=== PATIENT | female | born 1945 | race Caucasian/White ===

== ENCOUNTER 2021-06-14 13:54 | Emergency (ER) | payer OTHER ==
[~2021-06-14] VITALS: Ht 165.1 cm; Wt 81.7 kg
[~2021-06-14 13:54] MED LIST: ACET325 PO; ATOR40TA PO; Amphetamine Sal30 MG PO; CELE200 PO; CELECOXIB200 MG PO; DOCU100 PO; DULCOLAX400 MG/5 M PO; ESCI20; FURO20 PO; IMIP25 PO; IMITREX; IMITREX50 M1 PO; METPRE4DP PO; MULTI-VITAMIN1 EAC2 PO; Norco 5-325 Ta1 EACH PO; OMEP20ER PO; OXYC10ER PO; PARO10 PO; PROGESTERONE; Percocet 5-3251 EACH PO; RALO60; ROSU10TA; SENN187 PO; SIMV40 PO; TESTOSTERONE; TIZANIDINE HCL4 MG PO; TRAZ100; TRAZ100 PO; VENL75ER PO; Valium5 MG PO; Verapamil ER300 MG PO; WARF7.5 PO; [UNRECOGNIZED DRUG - CODE]; [UNRECOGNIZED DRUG - OTHER]; [UNRECOGNIZED DRUG - OTHER]; [UNRECOGNIZED DRUG - OTHER] PO
[2021-06-14 14:57] LABS: BASOPHILS ABSOLUTE AUTO 0.06 K/mm3 (0.00-0.23); BASOPHILS PERCENT AUTO 1 % (0-2); EOSINOPHILS ABSOLUTE AUTO 0.21 K/mm3 (0.00-0.68); EOSINOPHILS PERCENT AUTO 3 % (0-6); Hematocrit 43.6 % (33.0-51.0); Hemoglobin 14.3 g/dL (11.5-16.0); IMMATURE GRAN ABSOLUTE AUTO 0.02 K/mm3 (0.00-0.10); IMMATURE GRAN PERCENT AUTO 0 % (0-1); LYMPHOCYTES ABSOLUTE AUTO 2.13 K/mm3 (0.84-5.20); LYMPHOCYTES PERCENT AUTO 27 % (21-46); MONOCYTES ABSOLUTE AUTO 0.74 K/mm3 (0.16-1.47); MONOCYTES PERCENT AUTO 9 % (4-13); Mean Corpuscular HGB 30.5 pg (26.0-34.0); Mean Corpuscular HGB Conc 32.8 g/dL (31.5-36.5); Mean Corpuscular Volume 93 fL (80-100); Mean Platelet Volume 10.7 fL (9.1-12.4); NEUTROPHILS ABSOLUTE AUTO 4.89 K/mm3 (1.96-9.15); NEUTROPHILS PERCENT AUTO 61 % (41-73); Platelet Count 104 K/mm3 (150-400); RDW Coefficient Variation 13.7 % (11.7-14.2); Red Blood Cell Count 4.69 M/mm3 (3.80-5.20); White Blood Cell Count 8.05 K/mm3 (4.00-11.30)
[2021-06-14 15:16] LABS: Albumin, Blood 3.5 g/dL (3.4-5.0); Bilirubin, Total 0.5 mg/dL (0.1-1.0); Bun/Creatinine Ratio 17.8 (12.0-20.0); Creatinine, Blood 1.01 mg/dL (0.40-1.00); Globulin, Blood 3.6 g/dL (2.2-4.0); Magnesium, Blood 2.2 mg/dL (1.6-2.4); Potassium, Blood 3.8 mmol/L (3.5-5.5); Total Protein, Blood 7.1 g/dL (6.4-8.2)
[2021-06-14 15:47] LABS: Source, Urine Clean Catch
[2021-06-14 15:49] LABS: Bilirubin, Urine Neg (Neg); Blood, Urine Neg (Neg); Glucose Qualitative, Urine Neg (Neg); Ketones, Urine 1+ (Neg); Leukocyte Esterase, Urine Neg (Neg); Nitrite, Urine Neg (Neg); Protein, Urine 1+ (Neg); Urobilinogen, Urine NORM (Normal)
[2021-06-14 16:03] LABS: Appearance, Urine Clear (Clear); Color, Urine Pale Yellow (P-Yellow)
[2021-06-14 18:40] LABS: Influenza A, PCR NEGATIVE (NEGATIVE); Influenza B, PCR NEGATIVE (NEGATIVE); Resp Syncytial Virus, PCR NEGATIVE (NEGATIVE); SARS-Cov-2 (COVID-19) PCR, MMC NEGATIVE (NEGATIVE)
== END 2021-06-14 19:45 | disposition home or self-care (01) ==
LOC: ER 13:54
PROVIDERS: Physician Assistant
DX: R53.1 Weakness (principal); R68.89 Other general symptoms and signs; Z88.8 Allergy status to other drugs, medicaments and biological substances; Z79.899 Other long term (current) drug therapy; Z79.01 Long term (current) use of anticoagulants; Z86.711 Personal history of pulmonary embolism
CPT/HCPCS: 0241U; 36415; 80053; 83735; 83880; 84484; 85025; 93005; 93010; 99285-25

== ENCOUNTER 2021-07-03 09:35 | Day surgery (SDC) | payer OTHER ==
[~2021-07-03] VITALS: Ht 165.1 cm; Wt 82.0 kg
[2021-07-03] MEDS ORDERED: GLUCHON PO (10:09)
--- NOTE | 2021-07-03 14:30 | NUR ---
PT RESTING IN BED. SO AT BEDSIDE.
--- NOTE | 2021-07-03 16:19 | NUR ---
DR RICH IN AND TALKED WITH PT AND . PT DRESSED WITH ASSIST. TR BAND REMOVED AND CLOTH DOT PLACED AT R RADIAL SITE. PRESSURE DRESSING APPLIED TO SIGHT BRUISING NOTED AND DR AWARE. SALINE LOCK REMOVED WITH CATHETER INTACT. R ARM PLACED IN SLING. PT AWARE TO TAKE PRESSURE DRESSING OFF TONIGHT. DISCHARGE INSTRUCTIONS REVIEWED WITH PT, VERBALIZES UNDERSTANDING OF INSTRUCTIONS. ALSO VERBALIZES UNDERSTANDING OF INSTRUCTIONS. PT TO PRIVATE VEHICLE PER W/C WITH ONE STAFF.
== END 2021-07-03 22:50 | disposition home or self-care (01) ==
LOC: MHTC 09:35
DX: I05.0 Rheumatic mitral stenosis (principal); I07.1 Rheumatic tricuspid insufficiency; I27.20 Pulmonary hypertension, unspecified; E78.5 Hyperlipidemia, unspecified; I10 Essential (primary) hypertension; R06.00 Dyspnea, unspecified; R53.83 Other fatigue; Z88.8 Allergy status to other drugs, medicaments and biological substances
CPT/HCPCS: 76937; 93460; 99152; 99153; C1769; C1887; C1894; J1644; J2250; J3010; J7030; J7040; J7050; Q9967

== ENCOUNTER 2022-06-30 17:58 | Inpatient (IN) | payer OTHER ==
[~2022-06-30] VITALS: Ht 165.1 cm; Wt 85.0 kg
[~2022-06-30 17:58] MED LIST changes: -AMIODARONE; +CALAN SR240 M1 PO; -CENTRUM SILVER1 EAC2 PO; -NEBI5 PO; -Verapamil ER300 MG PO; -WARF5 PO; -ZOCOR20 MG
[2022-06-30] MEDS ORDERED: AMIODARONE (18:42)
[2022-06-30] MEDS ORDERED: ZOCOR20 MG (18:43)
[2022-06-30 21:11] LABS: International Normalized Ratio 1.86; Prothrombin Time Results 18.9 Sec (9.7-11.5)
[2022-06-30 21:33] LABS: Anti-Xa UFH, PHA Monitoring <0.10 IU/mL
[2022-06-30 22:20] VITALS: BP 144/75
--- NOTE | 2022-06-30 23:00 | NUR ---
ARRIVAL TO [facility] PT ARRIVED TO [facility] AT APPROXIMATELY 2210. PT TRANSFERED FROM ER [facility] TO HOSPITAL BED WITH SBA. PT A&Ox4, COMMUNICATES NEEDS APPROPRIATELY. ORIENTED PT CALL LIGHT/UNIT. SpO2> 92% RA, DENIES SOB. BP STABLE, SINUS 60's, DENIES CP/PRESSURE. PT REPORTS RIGHT NECK/SHOULDER PAIN, ICE PACK PROVIDED AND MEDICATED PER EMAR. HEPARIN gtt STARTED @ 12units/hr PER PHARMACY. BED IN LOWEST POSITION, CALL LIGHT IN REACH.
[2022-07-01] VITALS (14 sets, daily range): BP systolic 116–158; BP diastolic 55–104
[2022-07-01 05:29] LABS: BASOPHILS ABSOLUTE AUTO 0.08 K/mm3 (0.00-0.23); BASOPHILS PERCENT AUTO 1 % (0-2); EOSINOPHILS ABSOLUTE AUTO 0.39 K/mm3 (0.00-0.68); EOSINOPHILS PERCENT AUTO 5 % (0-6); Hematocrit 39.2 % (33.0-51.0); Hemoglobin 12.6 g/dL (11.5-16.0); IMMATURE GRAN ABSOLUTE AUTO 0.01 K/mm3 (0.00-0.10); IMMATURE GRAN PERCENT AUTO 0 % (0-1); LYMPHOCYTES ABSOLUTE AUTO 2.54 K/mm3 (0.84-5.20); LYMPHOCYTES PERCENT AUTO 34 % (21-46); MONOCYTES ABSOLUTE AUTO 0.76 K/mm3 (0.16-1.47); MONOCYTES PERCENT AUTO 10 % (4-13); Mean Corpuscular HGB 29.2 pg (26.0-34.0); Mean Corpuscular HGB Conc 32.1 g/dL (31.5-36.5); Mean Corpuscular Volume 91 fL (80-100); Mean Platelet Volume 10.4 fL (9.1-12.4); NEUTROPHILS ABSOLUTE AUTO 3.81 K/mm3 (1.96-9.15); NEUTROPHILS PERCENT AUTO 50 % (41-73); Platelet Count 195 K/mm3 (150-400); RDW Coefficient Variation 14.3 % (11.7-14.2); RDW Standard Deviation 48.2 fL (35.1-46.3); Red Blood Cell Count 4.31 M/mm3 (3.80-5.20); White Blood Cell Count 7.59 K/mm3 (4.00-11.30)
[2022-07-01 06:02] LABS: Bun/Creatinine Ratio 34.6 (12.0-20.0); Calcium, Blood 8.1 mg/dL (8.5-10.1); Creatinine, Blood 0.93 mg/dL (0.40-1.00); Potassium, Blood 4.2 mmol/L (3.5-5.5)
--- NOTE | 2022-07-01 06:23 | NUR ---
SHIFT SUMMARY PT A&Ox4, CALLS AND COMMUNICATES NEEDS APPROPRIATELY. PT SBA TO BATHROOM, CONTINENT OF URINE, NO BM THIS SHIFT. SpO2> 92% RA, DENIES SOB. BP STABLE, SINUS 60's, DENIES CP/PRESSURE. PT REPORTS RIGHT NECK/SHOULDER PAIN, ICE PACK PROVIDED AND MEDICATED PER EMAR. HEPARIN gtt @ 12units/hr PER PHARMACY. PT NPO. NOTIFIED OF CRIICAL TROP, ATTEMPTED TO NOTIFY PHYSICIAN, WAITING FOR CALL BACK. NO CHANGE IN PT STATUS. NO OTHER EVENTS, WILL REPORT TO ONCOMING RN.
--- NOTE | 2022-07-01 09:15 | NUR ---
AM NOTE: PATIENT ALERT AND ORIENTED X4. 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 PATIENT STATES SHE IS ABLE TO SEE SHADOWS WITH RIGHT EYE. LEFT EYE WNL. WEARING GLASSES. NUMBNESS TO BILATERAL FEET AND LEFT THIGH. PATIENT STATES SHE OCCASIONALLY GETS [employer]ARP SHOOTING "ELECTRIC" PAIN IN LEFT THIGH. ON ROOM AIR SATING 100%. DENIES SOB. LUNGS SOUNDING CLEAR. NO COUGH NOTED. TELE SHOWING SR WITH HR 60'S. DENIES CHEST PAIN/PRESSURE/PALPITATIONS. BP STABLE. MINIMAL EDEMA NOTED TO BLE. HEPARIN DRIP INFUSING PER EMAR. 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 PATIENT STATES RECENTLY SHE FELT A TIGHTNESS IN HER LEFT CALF AT HOME AND PLACED HER MANUEL HOSE ON, WHICH GAVE HER RELIEF. DENIES TIGHTNESS AT THIS TIME. LEFT CALF SLIGHTLY LARGER THAN RIGHT, NO REDNESS OR IRRITATION NOTED. DENIES PAIN IN CALVES. ECHO COMPLETED THIS MORNING. NPO AT THIS TIME PENDING CARDIOLOGY CONSULT. TO BRING IN HOME MEDICATION LIST TO UPDATE MED REC. PATIENT STATES SHE WAS RECENTLY PLACED ON BP MEDICATION THAT WAS NOT MAKING HER FEEL GOOD AND SHE WAS WORKING WITH HR DOCTORS TO CUT IT BACK. DENIES ABDOMINAL PAIN/NAUSEA. VOIDING WNL. UP WITH SBA TO BATHROOM. SKIN OVERALL C/D/I. CALL LIGHT IN REACH. WILL CONTINUE TO MONITOR.
--- NOTE | 2022-07-01 10:13 | NUR ---
DR. DEJESUS BY, PLAN FOR ANGIOGRAM TODAY. PATIENT HAS REMAINED NPO. HEPARIN GTT, CONTINUES PER EMAR. CONSENT SIGNED AND IN CHART.
--- NOTE | 2022-07-01 10:15 | NUR ---
PATIENT TO HEART CENTER AT THIS TIME.
[2022-07-01] MEDS ORDERED: CENTRUM SILVER1 EAC2 PO (10:24)
[2022-07-01] MEDS ORDERED: WARF5 PO (10:30)
[2022-07-01] MEDS ORDERED: NEBI5 PO (10:31)
--- NOTE | 2022-07-01 12:02 | NUR ---
PATIENT BACK FROM [facility] AT 1130. RIGHT RADIAL SITE WNL. SOFT/NONTENDER. NO SIGNS OF BLEEDING. TR BAND AND ARM BOARD IN PLACE. RADIAL SITE PRECAUTIONS REVIEWED WITH PATIENT. HEPARIN GTT CONTINUES PER DR. DEJESUS. PHARMACY CALLED AND UPDATED ON HEPARIN. POST VITALS IN PROGRESS AND STABLE. RIGHT RADIAL PULSE STRONG AND PALPABLE. PLAN FOR POSSIBLE LEATHA IN AM, NPO AT MIDNIGHT. DR. SLOAN BY TO SEE PATIENT, PLAN FOR VENOUS DUPLEX AND CTA OF CHEST. ORDERS TO DC NS. THIS RN ALSO UPDATED ON MED REC BEING COMPLETE. LIST OF PATIENT MEDICATIONS COPIED AND IN CHART. EUGENE CALLED AND UPDATED POST ANGIO.
--- NOTE | 2022-07-01 12:11 | NUR ---
SPOKE WITH DR. COBURN, WILL CONTINUE NS AT 75 ML/HR. SEE EMAR.
--- NOTE | 2022-07-01 12:55 | NUR ---
VENOUS DUPLEX BEING COMPLETED AT THIS TIME.
--- NOTE | 2022-07-01 18:31 | NUR ---
SHIFT SUMMARY: NO ACUTE CHANGES. PATIENT NEURO UNCHANGED. NO TELE EVENTS, REMAINS SR WITH HR 60'S. ON ROOM AIR. VITAL SIGNS STABLE. HEPARIN GTT CONTINUES ANTI XA PENDING AT THIS TIME. NS PER EMAR. UP TO BATHROOM WITH SBA. EATING WNL. PLAN FOR NPO AT MIDNIGHT. RIGHT RADIAL SITE WITH SMALL HEMATOMA THAT IS SOFT. SEE HEART CENTER FLOW SHEET CHARTING FOR REMOVAL OF TR BAND. TR BAND OFF AT THIS TIME. TEGADERM COVERING SITE, ARM BOARD IN PLACE. PLAN FOR LEATHA IN AM. AT BEDSIDE AND UPDATED THROUGHOUT SHIFT. VENOUS DUPLEX AND CTA OF CHEST COMPLETED. DENIES PAIN. DENIES NEEDS AT THIS TIME.
[2022-07-02 03:02] VITALS: BP 137/85
[2022-07-02 04:15] LABS: BASOPHILS ABSOLUTE AUTO 0.08 K/mm3 (0.00-0.23); BASOPHILS PERCENT AUTO 1 % (0-2); EOSINOPHILS ABSOLUTE AUTO 0.43 K/mm3 (0.00-0.68); EOSINOPHILS PERCENT AUTO 6 % (0-6); Hematocrit 39.1 % (33.0-51.0); Hemoglobin 12.7 g/dL (11.5-16.0); IMMATURE GRAN ABSOLUTE AUTO 0.02 K/mm3 (0.00-0.10); IMMATURE GRAN PERCENT AUTO 0 % (0-1); LYMPHOCYTES ABSOLUTE AUTO 1.82 K/mm3 (0.84-5.20); LYMPHOCYTES PERCENT AUTO 24 % (21-46); MONOCYTES ABSOLUTE AUTO 0.68 K/mm3 (0.16-1.47); MONOCYTES PERCENT AUTO 9 % (4-13); Mean Corpuscular HGB 29.2 pg (26.0-34.0); Mean Corpuscular HGB Conc 32.5 g/dL (31.5-36.5); Mean Corpuscular Volume 90 fL (80-100); Mean Platelet Volume 10.5 fL (9.1-12.4); NEUTROPHILS ABSOLUTE AUTO 4.42 K/mm3 (1.96-9.15); NEUTROPHILS PERCENT AUTO 59 % (41-73); Platelet Count 199 K/mm3 (150-400); RDW Coefficient Variation 14.1 % (11.7-14.2); RDW Standard Deviation 46.7 fL (35.1-46.3); Red Blood Cell Count 4.35 M/mm3 (3.80-5.20); White Blood Cell Count 7.45 K/mm3 (4.00-11.30)
[2022-07-02 04:30] LABS: Bun/Creatinine Ratio 23.4 (12.0-20.0); Calcium, Blood 8.5 mg/dL (8.5-10.1); Creatinine, Blood 0.81 mg/dL (0.40-1.00); Potassium, Blood 4.2 mmol/L (3.5-5.5)
--- NOTE | 2022-07-02 05:01 | NUR ---
SHIFT SUMMARY PT A&Ox4, CALLS AND COMMUNICATES NEEDS APPROPRIATELY. PT AMBULATED TO BATHROOM FREQUENTLY WITH SBA. CONTINENT OF URINE, NO BM THIS SHIFT. SpO2> 92% RA, DENIES SOB. BP STABLE, SINUS 60's, DENIES CP/PRESSURE. HEPARIN gtt @ 12units/hr PER PHARMACY. PT NPO. PT DENIED PAIN THROUGHOUT SHIFT. NO OTHER EVENTS, WILL REPORT TO ONCOMING RN.
--- NOTE | 2022-07-02 05:11 | NUR ---
SHIFT SUMMARY PT A&Ox4, CALLS AND COMMUNICATES NEEDS APPROPRIATELY. PT AMBULATED TO BATHROOM FREQUENTLY WITH SBA. CONTINENT OF URINE, NO BM THIS SHIFT. SpO2> 92% RA, DENIES SOB. BP STABLE, SINUS 60's, DENIES CP/PRESSURE. R RADIAL ANGIO SITE C/D/I, SITE UNCHANED SINCE START OF SHIFT WITH SMALL HEMATOMA PRESENT. PT DENIES PAIN AT SITE, ARM BOARD IN PLACE. HEPARIN gtt @ 12units/hr PER PHARMACY. PT NPO. PT DENIED PAIN THROUGHOUT SHIFT. NO OTHER EVENTS, WILL REPORT TO ONCOMING RN.
[2022-07-02 12:32] LABS: International Normalized Ratio 1.54; Prothrombin Time Results 15.8 Sec (9.7-11.5)
--- NOTE | 2022-07-02 12:33 | NUR ---
SHIFT UPDATE: PATIENT IS ALERT AND ORIENTED,PLEASANT, COOPERATIVE WITH CARE. ABLE TO MAKE NEEDS KNOWN. RIGHT EYE INJURY WHEN YOUNG CHILD. BLINDNESS, CAN MAKE OUT SOME SHADOWS. DENIES CHEST PAIN PRESSURE DIZZINESS, LIGHT-HEADEDNESS, NO ORHTOSTATIC POSITION DIZZINESS. SLIGHTLY INCREASED BP 150'S SIMILAR TO YESTERDAY VITALS CARDIOLOGY SEEN PATIENT NO LEATHA, 6-8 WEEK FOLLOW UP FOR ECHO, INR TO BE 2.5-3.5. DR. REEVES ORDERED STAT INR, 10MG OF WARFARIN, PT IN AM, PHARM CONSULT, MED TELE STATUS. NO LUNG CONCERNS ON RA. DEEP BREATHING COUGH AND POSITION CHANGES EDUCATED PATIENT ALONG WITH MEDICATION ANTICOAGULATION CURRENT ILLNESS >30MINUTES FROM THIS RN. PATIENT HAS INFUSING FLUIDS AND INCREASED URINE OUTPUT, NO WORSENING TO EDEMA SEEN. WILL CONTINUE TO MONITOR. NO CONCERNS FROM THIS RN OR PATIENT AT THIS TIME WILL CONTINUE TO MONITOR UNTIL SHIFT CHANGE.
--- NOTE | 2022-07-02 17:20 | NUR ---
END OF SHIFT: PATIENT HAS NO CHANGES FROM SHIFT UPDATE. STILL DENIES CHEST PAIN, SLIGHT INCREASE TO BLOOD PRESSURE, 150'S SYS. TYPICAL FROM YESTERDAY BLOOD PRESSURES. NO CONCERNS FROM THIS RN. RM [id number] REPORT NOT GIVEN AT THIS TIME AWAITING ROOM TO BE CLEANED MT STATUS. WILL CONTINUE TO MONITOR UNTIL SHIFT CHANGE. HEPARIN GTT STILL INFUSING NO CHANGES.
[2022-07-02] MEDS ORDERED: NEURONTIN300 MG PO (20:00)
[2022-07-02 20:53] VITALS: BP 164/87
[2022-07-03 03:10] VITALS: BP 138/74
--- NOTE | 2022-07-03 05:27 | NUR ---
SHIFT SUMMARY 76 YR F TRANSFERED FROM PCU ON 07/02/22. FULL CODE. NO ACUTE CHANGES THIS SHIFT. HEPARIN IS STILL RUNNING WITH NO CHANGES IN RATE SO FAR THIS SHIFT. PT HAS HAD NO C/O PAIN OR DISCOMFORT. SHE IS ABLE TO AMBULATE TO THE BATHROOM INDEPENDANTLY, SHE JUST NEEDS THE IV PUMP UNPLUGGED FIRST. SHE CALLS APPROPRIATELY AND IS PLEASANT AND COOPERATIVE WITH CARE.
[2022-07-03 05:39] LABS: Anti-Xa UFH, PHA Monitoring 0.47 IU/mL; International Normalized Ratio 1.37; Prothrombin Time Results 14.1 Sec (9.7-11.5)
[2022-07-03 08:46] VITALS: BP 128/84
[2022-07-03 16:40] VITALS: BP 143/83
--- NOTE | 2022-07-03 18:15 | NUR ---
SHIFT SUMMARY NO ACUTE CHANGES THIS SHIFT. PATIENT EATING, DRINKING, & VOIDING W/O DIFFICULTY. AMBULATING WELL INDEPENDENLTY IN ROOM. DENIED CP/PRESSURE/SOB T/O SHIFT. HEPARIN DRIP RUNNING PER EMAR, NO CHANGES MADE THIS SHIFT. USES CALL LIGHT APPROPRIATELY, IN REACH. WILL REPORT TO ONCOMING RN AT 1900.
[2022-07-03 19:22] VITALS: BP 145/78
--- NOTE | 2022-07-04 03:24 | NUR ---
SHIFT SUMMARY 76 YR F ADMITTED ON 07/01/22 FOR [facility]STMI. FULL CODE. NO ACUTE CHANGES THIS SHIFT. PT IS A&0 x 4 AND INDEPENDANT IN THE ROOM. NO C/O PAIN OR DISCOMFORT THIS SHIFT. HEPARIN IS RUNNING @ 12 U/KG/HR. SAFETY MEASURES IN PLACE AND CALL LIGHT WITHIN REACH. WILL CONTINUE TO MONITOR.
[2022-07-04 04:19] VITALS: BP 145/89
[2022-07-04 05:21] LABS: BASOPHILS ABSOLUTE AUTO 0.09 K/mm3 (0.00-0.23); BASOPHILS PERCENT AUTO 1 % (0-2); EOSINOPHILS ABSOLUTE AUTO 0.47 K/mm3 (0.00-0.68); EOSINOPHILS PERCENT AUTO 7 % (0-6); Hematocrit 38.9 % (33.0-51.0); Hemoglobin 12.6 g/dL (11.5-16.0); IMMATURE GRAN ABSOLUTE AUTO 0.02 K/mm3 (0.00-0.10); IMMATURE GRAN PERCENT AUTO 0 % (0-1); LYMPHOCYTES ABSOLUTE AUTO 1.89 K/mm3 (0.84-5.20); LYMPHOCYTES PERCENT AUTO 27 % (21-46); MONOCYTES ABSOLUTE AUTO 0.76 K/mm3 (0.16-1.47); MONOCYTES PERCENT AUTO 11 % (4-13); Mean Corpuscular HGB 28.9 pg (26.0-34.0); Mean Corpuscular HGB Conc 32.4 g/dL (31.5-36.5); Mean Corpuscular Volume 89 fL (80-100); Mean Platelet Volume 9.8 fL (9.1-12.4); NEUTROPHILS ABSOLUTE AUTO 3.82 K/mm3 (1.96-9.15); NEUTROPHILS PERCENT AUTO 54 % (41-73); Platelet Count 206 K/mm3 (150-400); RDW Coefficient Variation 14.1 % (11.7-14.2); RDW Standard Deviation 45.3 fL (35.1-46.3); Red Blood Cell Count 4.36 M/mm3 (3.80-5.20); White Blood Cell Count 7.05 K/mm3 (4.00-11.30)
[2022-07-04 05:37] LABS: Anti-Xa UFH, PHA Monitoring 0.51 IU/mL; International Normalized Ratio 1.48; Prothrombin Time Results 15.2 Sec (9.7-11.5)
[2022-07-04 07:59] VITALS: BP 125/74
--- NOTE | 2022-07-04 15:24 | NUR ---
SHIFT SUMMARY: PATIENT A&OX4. CALM, PLEASANT AND COOPERATIVE c CARE. USES CALL LIGHT APPROPRIATELY AND ABLE TO MAKE NEEDS KNOWN. PATIENT DENIES CP/PRESSURE, N/V, SOB. ON TELE, SR HR 75 BPM c FIRST DEGREE HB, PER PRODUCTION MAINTENANCE TECHNICIAN MONICA JENSEN. NOTED BRUISING TO R WRIST, PER PATIENT FROM ANGIOGRAM DONE ON 07/01/22. PATIENT IS CONTINENT OF URINE AND STOOL. AMBULATES TO BATHROOM AND BACK IN BED INDEPENDENTLY T/O SHIFT. IV TO R AC SALINE LOCKED. IV TO R FOREARM INFUSING HEPARIN AT 16.8 MLS/HR. RECEIVED SCHEDULED MEDS PER EMAR. VITAL SIGNS REVIEWED. CALL LIGHT IN REACH.
[2022-07-04 17:50] VITALS: BP 135/92
[2022-07-04 19:28] VITALS: BP 133/83
[2022-07-05 02:38] VITALS: BP 115/69
--- NOTE | 2022-07-05 04:02 | NUR ---
SHIFTY SUMMARY PATIENT HAD NO ACUTE CHANGES. AXOX 4 AND SBA TO BR. DENIES CHEST PAIN, SOB, AND N/V. VSS/AFEBRILE. PIV REMAINS INTACT. TELE MONITOR NSR WITH FIRST DEGREE @ 72. HEPARIN INFUSING AT 16.8 mL/HR MANAGE BY PHARMACY. CALL LIGHT IN REACH. BED IN LOWEST POSITION. WILL CONTINUE TO MONITOR UNTIL DAY SHIFT NURSE ASSUMES CARE.
[2022-07-05 04:55] LABS: International Normalized Ratio 1.9; Prothrombin Time Results 19.2 Sec (9.7-11.5)
[2022-07-05 07:29] VITALS: BP 121/70
--- NOTE | 2022-07-05 16:25 | NUR ---
NO ACUTE CHANGES PT IS AOX4 AND COOPERATIVE OF CARE. PT IS INDEPENDENT IN ROOM AND CAN MAKE NEEDS KNOWN. CALL LIGHT WITHIN REACH WILL CONTINUE TO MONITOR.
[2022-07-05 19:28] VITALS: BP 135/75
--- NOTE | 2022-07-06 04:15 | NUR ---
SHIFT SUMMARY PATIENT HAD NO ACUTE CHANGES. AXOX 4 AND SBA TO BR. PIV REMAINS INTACT. HEPARIN INFUSING AT 16.8 mL/HR MANAGED BY PHARMACY. DENIES CHEST PAIN, SOB, AND N/V. TELE MONITOR NSR @ 73 WITH FIRST DEGREE. COOPERATIVE WITH CARE. CALL LIGHT IN REACH. BED IN LOWEST POSITION. WILL CONTINUE TO MONITOR UNTIL DAY SHIFT NURSE ASSUMES CARE.
[2022-07-06 04:37] LABS: Anti-Xa UFH, PHA Monitoring 0.56 IU/mL; International Normalized Ratio 2.48; Prothrombin Time Results 24.7 Sec (9.7-11.5)
[2022-07-06 05:05] VITALS: BP 137/80
[2022-07-06 07:52] VITALS: BP 127/68
[2022-07-06] MEDS ORDERED: ASPI81CH PO (08:58)
--- NOTE | 2022-07-06 09:03 | NUR ---
PT TO BE DISCHARGED WALKED WITH PT USING WALKER. PT REPORTS SLIGHT LIGHT HEADEDNESS BUT NO SOB.
--- NOTE | 2022-07-06 15:02 | NUR ---
LATE ENTRY-DISCHARGE PT DISCHARGED TO HOME. WALKED WITH PT USING WALKER TO ASSESS TOLORANCE. PT DENIED SOB. FELT A LITTLE LIGHT HEADED. ALERT AND ORIENTED X4.DISCUSSED DISCHARGE INSTRUCTIONS WITH PT. NO QUESTIONS AT THIS TIME.
== END 2022-07-06 11:20 | disposition home or self-care (01) | DRG 281 ==
LOC: ER 17:58 → PCU 17:59 → MEDS 07-02 18:54
PROVIDERS: Internal Medicine; Nurse Practitioner Acute Care; ADMIT Internal Medicine
PROC: 4A023N7 Measurement of Cardiac Sampling and Pressure, Left Heart, Percutaneous Approach (ICD-10-PCS; principal; 2022-07-01)
PROC: B2111ZZ Fluoroscopy of Multiple Coronary Arteries using Low Osmolar Contrast (ICD-10-PCS; 2022-07-01)
PROC: B24BZZ3 Ultrasonography of Heart with Aorta, Intravascular (ICD-10-PCS; 2022-07-01)
DX: T82.09XA Other mechanical complication of heart valve prosthesis, initial encounter (principal); I21.A1 Myocardial infarction type 2; N17.9 Acute kidney failure, unspecified; T82.847A Pain due to cardiac prosthetic devices, implants and grafts, initial encounter; I10 Essential (primary) hypertension; E78.5 Hyperlipidemia, unspecified; I48.0 Paroxysmal atrial fibrillation; K21.9 Gastro-esophageal reflux disease without esophagitis; I44.0 Atrioventricular block, first degree; R79.1 Abnormal coagulation profile; G89.29 Other chronic pain; M54.9 Dorsalgia, unspecified; G43.909 Migraine, unspecified, not intractable, without status migrainosus; F32.A Depression, unspecified; Z86.711 Personal history of pulmonary embolism; Z86.718 Personal history of other venous thrombosis and embolism; Z85.3 Personal history of malignant neoplasm of breast; Z90.12 Acquired absence of left breast and nipple; Z95.4 Presence of other heart-valve replacement; Z98.890 Other specified postprocedural states; Z88.1 Allergy status to other antibiotic agents; Z88.8 Allergy status to other drugs, medicaments and biological substances; Z79.01 Long term (current) use of anticoagulants; Z79.899 Other long term (current) drug therapy; Y83.1 Surgical operation with implant of artificial internal device as the cause of abnormal reaction of the patient, or of later complication, without mention of misadventure at the time of the procedure
CPT/HCPCS: 36415; 71045; 71260; 76937; 80048; 83880; 84484; 85025; 85520; 85610; 85730; 93005; 93010; 93306; 93454; 93970; 94762; 96374; 99152; 99153; 99285-25; A9270; C1769; C1887; C1894; G0378; J1644; J2250; J3010; J7030; J7050; Q9967

== ENCOUNTER → 2022-06-30 | Outpatient (CLI) | payer OTHER ==
[~2022-06-30] MED LIST changes: +AMIODARONE; +CENTRUM SILVER1 EAC2 PO; +GLUCHON PO; +NEBI5 PO; +WARF5 PO; +ZOCOR20 MG
[2022-06-30 17:27] LABS: BASOPHILS PERCENT AUTO 1 % (0-2); EOSINOPHILS ABSOLUTE AUTO 0.41 K/mm3 (0.00-0.68); EOSINOPHILS PERCENT AUTO 5 % (0-6); Hematocrit 42.4 % (33.0-51.0); Hemoglobin 13.7 g/dL (11.5-16.0); IMMATURE GRAN ABSOLUTE AUTO 0.02 K/mm3 (0.00-0.10); IMMATURE GRAN PERCENT AUTO 0 % (0-1); LYMPHOCYTES ABSOLUTE AUTO 2.26 K/mm3 (0.84-5.20); LYMPHOCYTES PERCENT AUTO 25 % (21-46); MONOCYTES ABSOLUTE AUTO 0.89 K/mm3 (0.16-1.47); MONOCYTES PERCENT AUTO 10 % (4-13); Mean Corpuscular HGB 29.8 pg (26.0-34.0); Mean Corpuscular HGB Conc 32.3 g/dL (31.5-36.5); Mean Corpuscular Volume 92 fL (80-100); Mean Platelet Volume 10.2 fL (9.1-12.4); NEUTROPHILS ABSOLUTE AUTO 5.23 K/mm3 (1.96-9.15); NEUTROPHILS PERCENT AUTO 59 % (41-73); Platelet Count 217 K/mm3 (150-400); RDW Coefficient Variation 14.7 % (11.7-14.2); RDW Standard Deviation 49.6 fL (35.1-46.3); White Blood Cell Count 8.91 K/mm3 (4.00-11.30)
[2022-06-30 17:46] LABS: Albumin, Blood 3.5 g/dL (3.4-5.0); Albumin/Globulin Ratio 0.9 (0.8-1.8); Bilirubin, Total 0.2 mg/dL (0.1-1.0); Bun/Creatinine Ratio 28.3 (12.0-20.0); Calcium, Blood 8.7 mg/dL (8.5-10.1); Creatinine, Blood 1.38 mg/dL (0.40-1.00); Globulin, Blood 3.7 g/dL (2.2-4.0); Potassium, Blood 4.8 mmol/L (3.5-5.5); Thyroid Stimulating Hormone 3.371 uIU/mL (0.360-4.800); Total Protein, Blood 7.2 g/dL (6.4-8.2)
== END | disposition home or self-care (01) ==
LOC: LAB SHORT 17:22
PROVIDERS: Physician Assistant
DX: R06.00 Dyspnea, unspecified (principal)
CPT/HCPCS: 80053; 84443; 84484; 85025

== ENCOUNTER 2022-09-25 21:23 | Emergency (ER) | payer OTHER ==
[~2022-09-25] VITALS: Ht 165.1 cm; Wt 81.7 kg
[~2022-09-25 21:23] MED LIST changes: +AMIODARONE; +ASPI81CH PO; +CENTRUM SILVER1 EAC2 PO; +NEBI5 PO; +NEURONTIN300 MG PO; +WARF5 PO; +ZOCOR20 MG
[2022-09-25 22:15] LABS: BASOPHILS ABSOLUTE AUTO 0.02 K/mm3 (0.00-0.23); BASOPHILS PERCENT AUTO 0 % (0-2); EOSINOPHILS PERCENT AUTO 0 % (0-6); Hematocrit 41.5 % (33.0-51.0); Hemoglobin 13.9 g/dL (11.5-16.0); IMMATURE GRAN ABSOLUTE AUTO 0.03 K/mm3 (0.00-0.10); IMMATURE GRAN PERCENT AUTO 0 % (0-1); LYMPHOCYTES ABSOLUTE AUTO 0.74 K/mm3 (0.84-5.20); LYMPHOCYTES PERCENT AUTO 8 % (21-46); MONOCYTES ABSOLUTE AUTO 0.11 K/mm3 (0.16-1.47); MONOCYTES PERCENT AUTO 1 % (4-13); Mean Corpuscular HGB 30.6 pg (26.0-34.0); Mean Corpuscular HGB Conc 33.5 g/dL (31.5-36.5); Mean Corpuscular Volume 91 fL (80-100); Mean Platelet Volume 9.8 fL (9.1-12.4); NEUTROPHILS ABSOLUTE AUTO 8.24 K/mm3 (1.96-9.15); NEUTROPHILS PERCENT AUTO 90 % (41-73); Platelet Count 270 K/mm3 (150-400); RDW Coefficient Variation 15.6 % (11.7-14.2); RDW Standard Deviation 52.1 fL (35.1-46.3); Red Blood Cell Count 4.54 M/mm3 (3.80-5.20); White Blood Cell Count 9.14 K/mm3 (4.00-11.30)
[2022-09-25 22:33] LABS: Albumin, Blood 3.9 g/dL (3.4-5.0); Bilirubin, Total 0.5 mg/dL (0.1-1.0); Bun/Creatinine Ratio 27.1 (12.0-20.0); Calcium, Blood 9.2 mg/dL (8.5-10.1); Creatinine, Blood 1.33 mg/dL (0.40-1.00); Potassium, Blood 4.4 mmol/L (3.5-5.5); Total Protein, Blood 7.9 g/dL (6.4-8.2)
[2022-09-25 23:21] LABS: International Normalized Ratio 1.75
[2022-09-25 23:27] LABS: Prothrombin Time Results 17.8 Sec (9.7-11.5)
[2022-09-26 00:30] VITALS: BP 143/77
== END 2022-09-26 01:01 | disposition home or self-care (01) ==
LOC: ER 21:23
PROVIDERS: Physician Assistant; Student in an Organized Health Care Education/Training Program
DX: R07.2 Precordial pain (principal); M54.12 Radiculopathy, cervical region; M54.6 Pain in thoracic spine; R51.9 Headache, unspecified; E78.5 Hyperlipidemia, unspecified; K21.9 Gastro-esophageal reflux disease without esophagitis; I10 Essential (primary) hypertension; Z86.711 Personal history of pulmonary embolism; Z86.718 Personal history of other venous thrombosis and embolism; Z85.3 Personal history of malignant neoplasm of breast; Z79.01 Long term (current) use of anticoagulants; Z88.8 Allergy status to other drugs, medicaments and biological substances; Z79.82 Long term (current) use of aspirin; Z79.899 Other long term (current) drug therapy
CPT/HCPCS: 71046; 80053; 83690; 84484; 85025; 85610; 93005; 93010; 96374; 99285-25; A9270; J1200; J2765

== ENCOUNTER 2024-03-01 06:09 | Day surgery (SDC) | payer OTHER ==
[2024-03-01] MEDS ORDERED: SUMA25 PO (06:24)
[2024-03-01] MEDS ORDERED: FURO20 PO (06:25)
[2024-03-01] MEDS ORDERED: NS 1,000 ML IV ONE (06:35)
[2024-03-01 07:00] VITALS: BP 127/71
[2024-03-01 07:12] VITALS: BP 135/70
[2024-03-01 07:18] VITALS: BP 122/79
[2024-03-01 07:24] VITALS: BP 128/85
[2024-03-01 07:27] VITALS: BP 135/81
[2024-03-01 07:33] VITALS: BP 133/84
--- NOTE | 2024-03-01 07:40 | NUR ---
ASSUMED CARE FROM ANESTHESIA. PT AWAKE AND VERBALIZING WELL. EKG DONE.
--- NOTE | 2024-03-01 07:41 | NUR ---
PT AND VERBALIZED UNDERSTANDING OF WRITTEN AND VERBAL D/C INST. IV REMOVED. PT WILL BE TAKEN OUT OF THE HRT CENTER VIA W/C. SR 60-70BPM ON D/C.
[2024-03-01] MEDS ORDERED: Propofol 10mg/ml 20 ml Vial (Procedural) IV ONE (13:09)
== END 2024-03-01 23:00 | disposition home or self-care (01) ==
LOC: MHTC 06:09
DX: I48.92 Unspecified atrial flutter (principal); I10 Essential (primary) hypertension; K21.9 Gastro-esophageal reflux disease without esophagitis; E78.5 Hyperlipidemia, unspecified; Z88.8 Allergy status to other drugs, medicaments and biological substances; Z79.899 Other long term (current) drug therapy; Z95.2 Presence of prosthetic heart valve
CPT/HCPCS: 92960; 93005; 93010; J2704; J7030

== ENCOUNTER 2024-08-16 10:34 | Emergency (ER) | payer OTHER ==
[~2024-08-16] VITALS: Ht 165.1 cm; Wt 83.5 kg
[~2024-08-16 10:34] MED LIST changes: +SUMA25 PO
[2024-08-16 11:53] LABS: BASOPHILS PERCENT AUTO 1 % (0-2); EOSINOPHILS ABSOLUTE AUTO 0.38 K/mm3 (0.00-0.68); EOSINOPHILS PERCENT AUTO 3 % (0-6); Hematocrit 46.7 % (33.0-51.0); Hemoglobin 15.5 g/dL (11.5-16.0); IMMATURE GRAN ABSOLUTE AUTO 0.05 K/mm3 (0.00-0.10); IMMATURE GRAN PERCENT AUTO 1 % (0-1); LYMPHOCYTES ABSOLUTE AUTO 2.12 K/mm3 (0.84-5.20); LYMPHOCYTES PERCENT AUTO 19 % (21-46); MONOCYTES ABSOLUTE AUTO 0.88 K/mm3 (0.16-1.47); MONOCYTES PERCENT AUTO 8 % (4-13); Mean Corpuscular HGB 31.3 pg (26.0-34.0); Mean Corpuscular HGB Conc 33.2 g/dL (31.5-36.5); Mean Corpuscular Volume 94 fL (80-100); Mean Platelet Volume 10.3 fL (9.1-12.4); NEUTROPHILS ABSOLUTE AUTO 7.52 K/mm3 (1.96-9.15); NEUTROPHILS PERCENT AUTO 68 % (41-73); Platelet Count 308 K/mm3 (150-400); RDW Coefficient Variation 13.9 % (11.7-14.2); RDW Standard Deviation 48.5 fL (35.1-46.3); Red Blood Cell Count 4.95 M/mm3 (3.80-5.20); White Blood Cell Count 11.05 K/mm3 (4.00-11.30)
[2024-08-16 12:08] LABS: D-Dimer, Quantitative 0.86 mg/L FEU (0.00-0.52); International Normalized Ratio 1.47; Prothrombin Time Results 15.7 Sec (9.7-11.5)
[2024-08-16 12:11] LABS: Albumin, Blood 3.6 g/dL (3.4-5.0); Albumin/Globulin Ratio 0.9 (0.8-1.8); Bilirubin, Total 0.6 mg/dL (0.1-1.0); Bun/Creatinine Ratio 26.5 (12.0-20.0); Creatinine, Blood 1.13 mg/dL (0.40-1.00); Globulin, Blood 3.8 g/dL (2.2-4.0); Magnesium, Blood 2.4 mg/dL (1.6-2.4); Potassium, Blood 4.2 mmol/L (3.5-5.5); Thyroid Stimulating Hormone 1.66 uIU/mL (0.360-4.800); Total Protein, Blood 7.4 g/dL (6.4-8.2)
[2024-08-16 12:57] LABS: Source, Urine Clean Catch
[2024-08-16 13:08] LABS: Appearance, Urine Hazy (Clear); Bilirubin, Urine Neg (Neg); Blood, Urine Neg (Neg); Color, Urine Yellow (P-Yellow); Glucose Qualitative, Urine Neg (Neg); Ketones, Urine Neg (Neg); Leukocyte Esterase, Urine 1+ (Neg); Nitrite, Urine Neg (Neg); Protein, Urine 1+ (Neg); Specific Gravity, Urine 1.015 (1.003-1.022); Urobilinogen, Urine NORM (Normal)
[2024-08-16 13:43] LABS: Bacteria Many /hpf; Squamous Epithelial Cells Many /hpf (Few)
[2024-08-16 13:45] LABS: Amorphous Light (0-Heavy); Mucus Mod (0-Heavy); Red Blood Cells, Urine 0-2 /hpf (0-2); Transitional Epithelial Cells Rare /hpf (0-Rare)
[2024-08-16 14:40] VITALS: BP 126/79
== END 2024-08-16 14:42 | disposition home or self-care (01) ==
LOC: ER 10:34
PROVIDERS: Student in an Organized Health Care Education/Training Program
DX: R00.2 Palpitations (principal); R53.83 Other fatigue; R79.89 Other specified abnormal findings of blood chemistry; K21.9 Gastro-esophageal reflux disease without esophagitis; G43.909 Migraine, unspecified, not intractable, without status migrainosus; I10 Essential (primary) hypertension; E78.5 Hyperlipidemia, unspecified; Z95.2 Presence of prosthetic heart valve; Z88.3 Allergy status to other anti-infective agents; Z88.8 Allergy status to other drugs, medicaments and biological substances; Z79.01 Long term (current) use of anticoagulants; Z79.899 Other long term (current) drug therapy; Z59.89 Other problems related to housing and economic circumstances
CPT/HCPCS: 71045; 71260; 80053; 81001; 83735; 83880; 84443; 84484; 85025; 85379; 85610; 85730; 87086; 93005; 93010; 99285-25; Q9967

== ENCOUNTER 2025-02-15 06:00 | Day surgery (SDC) | payer OTHER ==
[2025-02-15] VITALS (12 sets, daily range): BP systolic 97–124; BP diastolic 70–82
[2025-02-15] MEDS ORDERED: CODACE30 PO (06:32)
[2025-02-15] MEDS ORDERED: Tambocor100 MG PO (06:33)
[2025-02-15] MEDS ORDERED: TELM40 PO (06:33)
[2025-02-15] MEDS ORDERED: ATOR40TA PO (06:33)
[2025-02-15] MEDS ORDERED: NS 1,000 ML IV ONE (06:39)
--- NOTE | 2025-02-15 07:25 | NUR ---
ASSUMED CARE FROM ANESTHESIA. PT AWAKE AND VERBALIZING WELL. SR 65-75 BPM POST CARDIOVERSION. EKG DONE.
--- NOTE | 2025-02-15 08:32 | NUR ---
PT AND VERBALIZED UNDERSTANDING OF WRITTEN AND VERBAL D/C INST. IV REMOVED. SR 65 BPM ON D/C. ZIO MONITOR PLACED. PT TAKEN OUT OF THE HRT CENTER VIA W/C.
[2025-02-15] MEDS ORDERED: Propofol 10mg/ml 20 ml Vial (Procedural) IV ONE (09:01)
[2025-02-15] MEDS ORDERED: Lidocaine HCl 2% 20 MG/ML 5ML SYR IV ONE (09:01)
[2025-02-15] MEDS ORDERED: SuccINYLCHOLINE Chloride 100 MG/5 ML 5MLSYR IV ONE (09:19)
== END 2025-02-15 23:00 | disposition home or self-care (01) ==
LOC: MHTC 06:00
DX: I48.0 Paroxysmal atrial fibrillation (principal); K21.9 Gastro-esophageal reflux disease without esophagitis; E78.5 Hyperlipidemia, unspecified; I10 Essential (primary) hypertension; E78.00 Pure hypercholesterolemia, unspecified; Z95.2 Presence of prosthetic heart valve; Z79.899 Other long term (current) drug therapy; Z88.8 Allergy status to other drugs, medicaments and biological substances
CPT/HCPCS: 92960; 93005; 93010; 93246; J0330; J2003; J2704; J7030